=== PATIENT | female | born 1990 | race Caucasian/White ===

== ENCOUNTER 2024-09-10 15:39 | Inpatient (IN) | payer OTHER ==
[~2024-09-10] VITALS: Ht 165.1 cm; Wt 75.3 kg
[2024-09-10] MEDS ORDERED: PRENATAL TABLE1 EAC4 PO (15:59)
[2024-09-10] MEDS ORDERED: FOLIC ACID20 MG PO (15:59)
[2024-09-10] MEDS ORDERED: SYNTHROID75 MCG PO (15:59)
[2024-09-10 16:13] VITALS: BP 112/69
[2024-09-10] MEDS ORDERED: MAGNESIUM SULFATE IN WATER 500 ML IV SCH (16:45)
[2024-09-10] MEDS ORDERED: RINGERS SOLUTION,LACTATED 1,000 ML IV SCH (16:45)
[2024-09-10 17:35] LABS: HEMATOCRIT 40.1 % (36.0-45.00); HEMOGLOBIN 13.6 g/dL (12.0-15.00); MEAN CELL VOLUME 94.9 fL (80.00-100.00); MEAN CORPUSCULAR HEMOGLOBIN 32.2 pg (27.00-32.0); MEAN CORPUSCULAR HGB CONC 33.9 g/dl (32.0-36.0); PLATELET COUNT 210 K/uL (150-450); RED BLOOD COUNT 4.22 M/uL (4.00-6.00); RED CELL DISTRIBUTION WIDTH 13.7 % (11.5-14.5); URINE APPEARANCE Clear; URINE BILIRRUBIN Negative (NEGATIVE); URINE BLOOD Negative; URINE COLOR Yellow; URINE GLUCOSE Negative (NEGATIVE); URINE LEUKOCYTE Negative; URINE NITRATE Negative; URINE PROTEIN Negative (NEGATIVE); URINE UROBILINOGEN 0.2 E.U./dl
[2024-09-10 17:38] LABS: URINE BACTERIA 861.6 uL (0.0-1933); URINE RBC 3.2 uL (0.0-20.8); URINE WBC 22.9 uL (0.0-23.2)
[2024-09-10 17:44] LABS: URINE CAST 0.29 uL (0.0-1.40); URINE KETONE >=160 (NEGATIVE)
[2024-09-10 18:40] LABS: INR 0.99; PARTIAL THROMBOPLASTIN TIME 30.4 SECONDS (22.0-34.0); PROTHROMBIN TIME 10.8 SECONDS (9.0-11.5)
[2024-09-10 18:46] LABS: ALBUMIN 3.3 gm/dL (3.4-5.0); BILIRUBIN TOTAL 0.34 mg/dL (0.3-1.2); CALCIUM 9.5 mg/dL (8.5-10.1); CREATININE SERUM 0.51 mg/dL (0.55-1.02); GFR 136.45; GLOBULINA 3.7 G/DL (2.4-3.5); POTASSIUM 4.37 mEq/L (3.5-5.1)
[2024-09-10 20:00] VITALS: BP 108/67
[2024-09-10 23:14] VITALS: BP 96/60
[2024-09-11] VITALS (8 sets, daily range): BP systolic 85–104; BP diastolic 53–69; O2SAT 98–99
[2024-09-11] MEDS ORDERED: ACETAMINOPHEN 500 MG GEL..CAP PO PRN (06:45)
[2024-09-11] MEDS ORDERED: LEVOTHYROXINE SODIUM 75 MCG TABLET PO SCH (07:30)
[2024-09-12 03:17] VITALS: BP 106/62; O2SAT 99
[2024-09-12 06:04] VITALS: BP 92/54; O2SAT 98
[2024-09-12] MEDS ORDERED: NIFEDIPINE 30 MG TAB.SA.OSM PO SCH (09:00)
[2024-09-12 10:47] VITALS: BP 101/67
== END 2024-09-12 10:44 | disposition home or self-care (01) | DRG 833 ==
LOC: NST 15:39 → LDR 16:22
PROVIDERS: ADMIT Obstetrics & Gynecology; ATTEND Obstetrics & Gynecology
PROC: 4A1HXCZ Monitoring of Products of Conception, Cardiac Rate, External Approach (ICD-10-PCS; principal; 2024-09-10)
DX: O60.02 Preterm labor without delivery, second trimester (principal); Z3A.23 23 weeks gestation of pregnancy

== ENCOUNTER 2024-11-05 19:51 | Inpatient (IN) | payer OTHER ==
[~2024-11-05] VITALS: Ht 165.1 cm; Wt 78.5 kg
[2024-11-05 18:42] VITALS: BP 115/72
[~2024-11-05 19:51] MED LIST: FOLIC ACID20 MG PO; PRENATAL TABLE1 EAC4 PO; SYNTHROID75 MCG PO
[2024-11-05] MEDS ORDERED: MAGNESIUM SULFATE IN WATER 500 ML IV SCH (20:00)
[2024-11-05] MEDS ORDERED: RINGERS SOLUTION,LACTATED 1,000 ML IV SCH (20:00)
[2024-11-05] MEDS ORDERED: MAGNESIUM SULFATE IN WATER 100 ML IV ONE (20:00)
[2024-11-05] MEDS ORDERED: BETAMETHASONE ACETATE,SOD PHOS 30 MG/5 ML ML ONE (21:23)
[2024-11-05 21:29] LABS: HEMATOCRIT 39.4 % (36.0-45.00); HEMOGLOBIN 13.4 g/dL (12.0-15.00); MEAN CORPUSCULAR HEMOGLOBIN 31.9 pg (27.00-32.0); PLATELET COUNT 218 K/uL (150-450); RED BLOOD COUNT 4.19 M/uL (4.00-6.00); RED CELL DISTRIBUTION WIDTH 13.7 % (11.5-14.5)
[2024-11-05] MEDS ORDERED: BETAMETHASONE ACETATE,SOD PHOS 30 MG/5 ML ML IM STA (21:39)
[2024-11-05 21:56] LABS: INR 0.99; PARTIAL THROMBOPLASTIN TIME 30.1 SECONDS (22.0-34.0); PROTHROMBIN TIME 10.8 SECONDS (9.0-11.5)
[2024-11-05 22:02] LABS: ALBUMIN 2.9 gm/dL (3.4-5.0); BILIRUBIN TOTAL 0.27 mg/dL (0.3-1.2); CALCIUM 9.2 mg/dL (8.5-10.1); CREATININE SERUM 0.5 mg/dL (0.55-1.02); GFR 139.6; GLOBULINA 3.6 G/DL (2.4-3.5); POTASSIUM 3.94 mEq/L (3.5-5.1); TOTAL PROTEIN 6.5 gm/dL (6.4-8.2)
[2024-11-05 23:08] VITALS: BP 109/69
[2024-11-05] MEDS ORDERED: ACETAMINOPHEN 500 MG GEL..CAP PO ONE (23:30)
[2024-11-06] MEDS ORDERED: TERBUTALINE SULFATE 1 MG/ML AMPUL SUBCUTANEO ONE (00:30)
[2024-11-06] MEDS ORDERED: ONDANSETRON HCL 2 MG/ML VIAL IV SCH (01:00)
[2024-11-06 04:00] VITALS: BP 110/68
[2024-11-06] MEDS ORDERED: ACETAMINOPHEN 500 MG GEL..CAP PO SCH (06:00)
[2024-11-06] MEDS ORDERED: LEVOTHYROXINE SODIUM 88 MCG TABLET PO SCH (06:00)
[2024-11-06 06:08] VITALS: BP 110/71; O2SAT 97
[2024-11-06] MEDS ORDERED: PNV,CALCIUM 72/IRON/FOLIC ACID 1 TAB TABLET PO SCH (09:00)
[2024-11-06 11:04] VITALS: BP 106/69; O2SAT 99
[2024-11-06 15:12] VITALS: BP 114/76
[2024-11-06 19:53] VITALS: BP 114/76
[2024-11-06] MEDS ORDERED: BETAMETHASONE ACETATE,SOD PHOS 30 MG/5 ML ML IM NR (21:45)
[2024-11-06 23:48] VITALS: BP 113/66
[2024-11-07 04:19] VITALS: BP 99/64
[2024-11-07] MEDS ORDERED: PATIENTS OWN MEDICATION (MEDICAMENTO EN PISO) PO SCH (06:00)
[2024-11-07 06:53] VITALS: BP 100/66; O2SAT 100
[2024-11-07] MEDS ORDERED: NIFEDIPINE 30 MG TAB.SA.OSM PO SCH (09:00)
[2024-11-07 10:51] VITALS: BP 99/64
[2024-11-07 11:42] VITALS: BP 99/64
[2024-11-07 16:03] VITALS: BP 100/66
[2024-11-08 00:08] VITALS: BP 96/60
[2024-11-08 07:00] VITALS: BP 97/59
[2024-11-08] MEDS ORDERED: NIFEDIPINE 60 MG TAB.SA.OSM PO SCH (09:00)
[2024-11-08 15:00] VITALS: BP 164/64
[2024-11-09 02:35] VITALS: BP 100/55
[2024-11-09] MEDS ORDERED: NIFEDIPINE ER60 MG PO (07:36)
[2024-11-09 08:04] VITALS: BP 97/67
== END 2024-11-09 09:21 | disposition home or self-care (01) | DRG 833 ==
LOC: LDR 19:51 → OB/GYN 11-07 10:02
PROVIDERS: ADMIT Obstetrics & Gynecology Maternal & Fetal Medicine; ATTEND Obstetrics & Gynecology Maternal & Fetal Medicine
PROC: 4A1HXCZ Monitoring of Products of Conception, Cardiac Rate, External Approach (ICD-10-PCS; principal; 2024-11-05)
PROC: BY4FZZZ Ultrasonography of Third Trimester, Single Fetus (ICD-10-PCS; 2024-11-08)
PROC: BU4CZZZ Ultrasonography of Uterus and Ovaries (ICD-10-PCS; 2024-11-08)
DX: O47.03 False labor before 37 completed weeks of gestation, third trimester (principal); Z3A.31 31 weeks gestation of pregnancy; O26.843 Uterine size-date discrepancy, third trimester; O36.8130 Decreased fetal movements, third trimester, not applicable or unspecified

== ENCOUNTER 2024-11-22 13:05 | Inpatient (IN) | payer OTHER ==
[~2024-11-22] VITALS: Ht 165.1 cm; Wt 78.9 kg
[~2024-11-22 13:05] MED LIST changes: +NIFEDIPINE ER60 MG PO
[2024-11-22 13:45] VITALS: BP 101/67
[2024-11-22] MEDS ORDERED: MAGNESIUM SULFATE IN WATER 4 GM/100 ML PIGGYBACK IV ONE (14:21)
[2024-11-22] MEDS ORDERED: MAGNESIUM SULFATE IN WATER 0.04 GM/ML IV.SOLN IV ONE (14:22)
[2024-11-22] MEDS ORDERED: RINGERS SOLUTION,LACTATED 1,000 ML IV SCH (14:30)
[2024-11-22] MEDS ORDERED: MAGNESIUM SULFATE IN WATER 500 ML IV SCH (14:30)
[2024-11-22] MEDS ORDERED: MAGNESIUM SULFATE IN WATER 100 ML IV ONE (14:30)
[2024-11-22 15:02] LABS: HEMATOCRIT 39.5 % (36.0-45.00); HEMOGLOBIN 13.3 g/dL (12.0-15.00); MEAN CELL VOLUME 93.4 fL (80.00-100.00); MEAN CORPUSCULAR HEMOGLOBIN 31.4 pg (27.00-32.0); MEAN CORPUSCULAR HGB CONC 33.7 g/dl (32.0-36.0); PLATELET COUNT 248 K/uL (150-450); RED BLOOD COUNT 4.23 M/uL (4.00-6.00); RED CELL DISTRIBUTION WIDTH 13.3 % (11.5-14.5)
[2024-11-22 15:03] LABS: URINE APPEARANCE Clear; URINE BILIRRUBIN Negative (NEGATIVE); URINE BLOOD Negative; URINE COLOR Yellow; URINE GLUCOSE Negative (NEGATIVE); URINE KETONE Negative (NEGATIVE); URINE LEUKOCYTE Negative; URINE NITRATE Negative; URINE PROTEIN Negative (NEGATIVE); URINE UROBILINOGEN 0.2 E.U./dl
[2024-11-22 15:06] LABS: URINE BACTERIA 14.6 uL (0.0-1933); URINE EPITHELIAL CELLS 6.3 uL (0.0-38.8)
[2024-11-22 15:15] VITALS: BP 107/70
[2024-11-22 15:31] LABS: URINE RBC 0.7 uL (0.0-20.8); URINE WBC 1.7 uL (0.0-23.2)
[2024-11-22 23:04] VITALS: BP 113/69
[2024-11-23 04:00] VITALS: BP 99/65
[2024-11-23 07:09] VITALS: BP 113/76
[2024-11-23] MEDS ORDERED: NIFEDIPINE 60 MG TAB.SA.OSM PO SCH (09:00)
[2024-11-23 11:29] VITALS: BP 103/68; O2SAT 99
[2024-11-23 13:18] VITALS: BP 100/66
[2024-11-23 18:24] VITALS: BP 105/70
[2024-11-24] VITALS: BP 100/62
[2024-11-24 08:00] VITALS: BP 96/59
== END 2024-11-24 12:43 | disposition home or self-care (01) | DRG 833 ==
LOC: NST 13:05 → LDR 14:13 → OB/GYN 11-23 10:26
PROVIDERS: Obstetrics & Gynecology; ADMIT Obstetrics & Gynecology Maternal & Fetal Medicine; ATTEND Obstetrics & Gynecology Maternal & Fetal Medicine
PROC: 4A1HXCZ Monitoring of Products of Conception, Cardiac Rate, External Approach (ICD-10-PCS; principal; 2024-11-22)
DX: O47.03 False labor before 37 completed weeks of gestation, third trimester (principal); Z3A.33 33 weeks gestation of pregnancy

== ENCOUNTER 2024-12-13 10:15 | Inpatient (IN) | payer OTHER ==
[~2024-12-13] VITALS: Ht 165.1 cm; Wt 2.3 kg
[2024-12-13] MEDS ORDERED: FOLIC ACID0.8 M1 PO (12:02)
[2024-12-19] MEDS ORDERED: SYNTHROID88 MCG PO (06:16)
[2024-12-19 06:18] VITALS: BP 108/72
[2024-12-19] MEDS ORDERED: OXYTOCIN 10 UNITS/ML VIAL ONE ×2 (09:29→16:11)
[2024-12-19] MEDS ORDERED: ERYTHROMYCIN BASE OPHT 1GM EACH TUBE OP ONE (09:29)
[2024-12-19] MEDS ORDERED: CEFAZOLIN SODIUM 1,000 MG VIAL IV SCH (10:15)
[2024-12-19] MEDS ORDERED: METHYLERGONOVINE MALEATE 0.2 MG/ML AMPUL ONE (10:40)
[2024-12-19] MEDS ORDERED: CARBOPROST TROMETHAMINE 250 MCG/ML AMPUL IM ONE (10:47)
[2024-12-19] MEDS ORDERED: SUGAMMADEX SODIUM 200 MG/2 ML VIAL IV ONE (11:11)
[2024-12-19] MEDS ORDERED: OXYTOCIN 1,000 ML IV SCH (11:45)
[2024-12-19] MEDS ORDERED: MORPHINE SULFATE 4 MG/ML CARTRIDGE IV PRN (11:45)
[2024-12-19] MEDS ORDERED: MORPHINE SULFATE 4 MG/ML VIAL IV ONE ×3 (12:10→16:00)
[2024-12-19 17:05] VITALS: BP 124/72
[2024-12-20] VITALS: BP 113/67; O2SAT 98
[2024-12-20] MEDS ORDERED: IBUprofen 400 MG TABLET PO SCH (09:00)
[2024-12-20] MEDS ORDERED: OxyCODONE HCL 5 MG TABLET (ROXICODONE) PO PRN (12:45)
[2024-12-20] MEDS ORDERED: SIMETHICONE 125 MG CAPSULE PO SCH (13:00)
[2024-12-20] MEDS ORDERED: DOCUSATE SODIUM 100MG CAP PO NR (13:00)
[2024-12-20] MEDS ORDERED: KETOROLAC TROMETHAMINE 10 MG TABLET PO SCH (14:00)
[2024-12-20 16:30] VITALS: BP 100/61; O2SAT 100
[2024-12-21] VITALS: BP 100/63
[2024-12-21 08:50] VITALS: BP 103/65
[2024-12-21] MEDS ORDERED: DOCUSATE SODIUM 100MG CAP PO SCH (09:00)
== END 2024-12-21 12:51 | disposition home or self-care (01) | DRG 788 ==
LOC: OB/GYN 12-19 05:18 → O/R 12-19 05:18 → OB/GYN 12-19 09:00
PROVIDERS: ADMIT Obstetrics & Gynecology Maternal & Fetal Medicine; ATTEND Obstetrics & Gynecology Maternal & Fetal Medicine
PROC: 4A1HXCZ Monitoring of Products of Conception, Cardiac Rate, External Approach (ICD-10-PCS; 2024-12-19)
PROC: 10D00Z1 Extraction of Products of Conception, Low, Open Approach (ICD-10-PCS; principal; 2024-12-19 09:00)
DX: O34.29 Maternal care due to uterine scar from other previous surgery (principal); Z3A.37 37 weeks gestation of pregnancy; Z37.0 Single live birth